=== PATIENT | male | born 1930 | race Caucasian/White ===

== ENCOUNTER 2016-09-14 10:02 | Day surgery (SDC) | payer MEDICARE, OTHER ==
[~2016-09-14] VITALS: Ht 180.3 cm; Wt 95.2 kg
[2016-09-14] MEDS ORDERED: ATOR40TA PO (10:19)
[2016-09-14] MEDS ORDERED: LOSA50TA20 PO (10:19)
[2016-09-14] MEDS ORDERED: NS 1,000 ML IV SCH (10:45)
[2016-09-14] MEDS ORDERED: MORPHINE 2 MG/ML 1ML SYRINGE IV ONE (10:45)
[2016-09-14] MEDS ORDERED: ONDANSETRON 4MG/2ML VIAL (J2405) IV ONE (10:45)
[2016-09-14 11:01] LABS: BASO % 0.3 % (0.0-1.0); EOS % 0.4 % (0.0-3.0); LARGE UNSTAINED CELL # 0.1 K/mm3 (0.0-0.4); LARGE UNSTAINED CELL % 0.7 % (0.0-4.0); LYMPH # 0.7 K/mm3 (1.5-4.5); LYMPH % 5.5 % (24.0-44.0); MEAN CORPUSCULAR HEMOGLOBIN 33.5 pg (27.0-33.0); MEAN CORPUSCULAR HGB CONC 33.5 g/dl (32.0-36.5); MONO # 0.4 K/mm3 (0.0-0.8); MONO % 3.6 % (0.0-5.0); NEUTROPHILS # 9.5 K/mm3 (1.8-7.7); NEUTROPHILS % 89.6 % (36.0-66.0); PLATELET COUNT, AUTOMATED 236 k/mm3 (150-450); RED CELL DISTRIBUTION WIDTH 11.8 % (11.5-14.5); WHITE BLOOD COUNT 10.6 K/mm3 (4.0-10.0)
[2016-09-14] MEDS: MORPHINE 4 MG/ML 1ML SYRINGE IV PRN ×2 (11:03→11:58)
[2016-09-14 11:19] LABS: ANION GAP 7 MEQ/L (8-16); BLOOD UREA NITROGEN 19 MG/DL (7-18); CALCIUM LEVEL 8.9 MG/DL (8.8-10.2); CARBON DIOXIDE LEVEL 26 MEQ/L (21-32); CHLORIDE LEVEL 107 MEQ/L (98-107); CREATININE FOR GFR 0.76 MG/DL (0.70-1.30); GLOMERULAR FILTRATION RATE > 60.0 (>35); GLUCOSE, FASTING 147 MG/DL (83-110); POTASSIUM SERUM 4.1 MEQ/L (3.5-5.1); SODIUM LEVEL 140 MEQ/L (136-145)
--- NOTE | 2016-09-14 11:54 | REP ---
AP PELVIS AND RIGHT HIP: 09/14/2016 CLINICAL HISTORY: Dislocated right hip prosthesis. COMPARISON: Left hip x-ray 01/12/2006. FINDINGS. The AP pelvis and dedicated right hip show posterior hip dislocation of the prosthetic femoral head from the prosthetic acetabulum on the right side. Heavy vascular calcifications are noted. The proximal femoral shaft and its relationship to this stem prosthesis component is normal. There is no visible fracture of the acetabulum or pubic rami. Degenerative changes of the right and left SI joint lower lumbar spine noted. A left total hip arthroplasty noted with normal appearance. IMPRESSION: 1. Posterior dislocation of the prosthetic right femoral head from the acetabulum best seen on that cross-table lateral view. No fracture or other acute finding. 2. Left total hip arthroplasty with normal relationship of the prosthetic components with each other and the [place] bone. Signed by Jasson Anderson MD 09/14/2016 01:46 P
[2016-09-14] MEDS ORDERED: ASPI1TAB PO (13:20)
--- NOTE | 2016-09-14 13:43 | REP ---
CHEST, TWO VIEWS: Two views of the chest are performed and compared to a prior study of 01/03/2006. There is no acute infiltrate. There is mild bibasilar interstitial fibrosis. The heart is normal in size and there is mild calcification and tortuosity of the thoracic aorta. There are degenerative changes at the shoulders and diffusely of the spine. IMPRESSION: No acute infiltrate. Signed by Rocky Turner MD 09/14/2016 02:29 P
--- NOTE | 2016-09-14 15:24 | ER ---
DATE OF CONSULTATION: 09/14/2016 PRIMARY CARE PROVIDER: Dr. Rainer Maddox REASON FOR CONSULTATION: Medical optimization. The patient is an 86-year-old male with past medical history significant for coronary artery disease status post cardiac stents in 1997, hypertension, hyperlipidemia and multiple hip surgeries, presented to the emergency room after his hip gave out on him. He stated he was fixing a water pipe, his right hip gave out on him and he fell to the ground. In the emergency room the patient had a hip x-ray which showed dislocated right hip prosthesis. The patient denies any chest pain at this time. Denies any shortness of breath, nausea or vomiting. No fevers, no chills. The hospitalist was called by the emergency room provider for medical optimization prior to taking the patient back to the operating room (OR) for reduction of his right hip. REVIEW OF SYSTEMS: 12-point review of systems was obtained all of which was negative except for those mentioned above. PAST MEDICAL HISTORY: Significant for coronary artery disease status post cardiac stenting, hypertension, hyperlipidemia, left total hip repair and later left hip revision, right total hip repair. SURGERIES: Significant for cardiac stenting, last of which was 1997, bilateral hip replacement, left hip revision, carpal tunnel bilaterally. MEDICATIONS: Include: - aspirin 81 mg - losartan 50 mg by mouth at bedtime - atorvastatin 40 mg by mouth at bedtime SOCIAL HISTORY: The patient smokes a pipe three times a day and drinks alcohol occasionally. Lives at home with his . FAMILY HISTORY: Noncontributory. ALLERGIES: To medications include CIPROFLOXACIN and COUMADIN. PHYSICAL FINDINGS: Blood pressure 149/76, 96% on room air, pulse is 86, respiratory rate is 18, temperature 96.4. HEENT: Pupils equal, round, reactive to light and accommodation. NECK: Supple. No jugular venous distention (JVD). LUNGS: Clear to auscultation bilaterally. ABDOMEN: Soft, nontender, nondistended. EXTREMITIES: Mild pain on palpation. IMAGING STUDIES: As above. EKG reviewed. ASSESSMENT/PLAN: 1. Right hip dislocation. The patient to be taken to the operating room (OR) for reduction. The patient has moderate risk for surgery given his age and heart disease. However, the patient is optimized at this time. He states he normally is able to walk 20-30 minutes before getting any shortness of breath or needing to sit down. He denies any chest pain at this time. 2. History of coronary artery disease. The patient has not been seen by cardiology. 3. Hypertension. The patient has not taken any blood pressure medication this morning, stating he takes losartan at night. 4. Hyperlipidemia. Continue the patient's medication postoperatively.
--- NOTE | 2016-09-14 15:35 | HPE ---
DATE OF ADMISSION: 09/14/2016 CHIEF COMPLAINT: Right hip dislocation status post total hip arthroplasty approximately 23 years ago. HISTORY: This is an 86-year-old gentleman who has had two hip replacements done on the left side and one on the right which he thinks is about 23 years old, done by Dr. Diaz. He has been doing well with the hip and then today he was bending over to pick something up when he felt his right hip and his legs seemed shortened. He just kind of collapsed to the ground but did not hurt anything when he fell, feels like the hip dislocated just when he was leaning over. He has had no previous instability issues. I was asked to evaluate him for this. They did not feel comfortable sedating him in the emergency room for a closed reduction, so Dr. Ardon recommended that we do this in the operating room. Past medical history notable for previous cardiac stents and previous hip surgeries. He does have hypercholesterolemia and hypertension. ALLERGIES: Include COUMADIN and CIPROFLOXACIN. CURRENT MEDICATIONS: Include: - atorvastatin 40 mg daily - losartan potassium 50 mg at bedtime - aspirin 81 mg at bedtime REVIEW OF SYSTEMS: Negative for neurologic history. Positive for cardiac history and hypertension and hypercholesterolemia. Negative for respiratory history or gastrointestinal (GI) history. Denies urinary disorder or ear, nose, throat (ENT) problems. Endocrine denies. Musculoskeletal as noted above. Denies hematologic condition or psychosocial problems. Denies being an methicillin-resistant Staphylococcus aureus (MRSA) carrier. PHYSICAL EXAMINATION: He is alert, oriented, no acute distress. HEENT: Extraocular muscles intact. Pharynx benign. Regular rate and rhythm to his pulse. Pulmonary: Nonlabored breathing. No obvious wheezing. Abdomen: Soft, nontender, nondistended. Extremities: Right lower extremity demonstrates some shortening, he moves his toes well. Reports intact sensation distally. Does have irritability to range of motion of his right hip. Does have probably some degree of diminished pulses distally but he has good perfusion of the foot. X-rays reviewed of his hip and pelvis and they demonstrate a right total hip arthroplasty that appears to be overall in good position. I do not see any obvious loosening or malposition noted of the components. There may be a little bit of osteolysis in the proximal femur, but the stem does not appear to be loose. The cup appears to be overall in good position and does not appear to be loose, it is in some degree of anteversion. IMPRESSION: 86-year-old with a right total hip arthroplasty dislocation. RECOMMENDATIONS: I have suggested closed reduction, possible open reduction if we cannot get it closed. He and his understand the nature of this and wish to go ahead with it. They understand the risks of persistent instability, fracture, need for further surgery and then the risks of medical problems, risks of anesthesia, etc. Will likely admit him overnight for pain management and physical therapy tomorrow to work on ambulation assist and total hip precautions to try to prevent this from recurring.
[2016-09-14] MEDS ORDERED: PROPOFOL 200 MG/20 ML VIAL As Ordered ONE (15:52)
[2016-09-14] MEDS ORDERED: LIDOCAINE 2% INJ 100 MG/5 ML SDV (FOR ANES.) As Ordered ONE (15:52)
[2016-09-14] MEDS ORDERED: SUCCINYLCHOLINE 100 MG/5 ML SYRINGE (J0330) As Ordered ONE (15:52)
[2016-09-14] MEDS ORDERED: fentaNYL 100 MCG/2 ML INJECTION (J3010) As Ordered ONE (16:21)
[2016-09-14] MEDS ORDERED: ACETAMINOPHEN TAB 650MG DOSE (2X325MG) PO PRN (17:00)
[2016-09-14] MEDS ORDERED: FLEET ENEMA PR PRN (17:00)
[2016-09-14] MEDS ORDERED: NORCO, ANEXSIA 5/325MG TABLET (HYDROcodone/ACETAMINOPHEN) PO PRN (17:00)
[2016-09-14] MEDS ORDERED: fentaNYL 100 MCG/2 ML INJECTION (J3010) IV PRN (17:00)
[2016-09-14] MEDS ORDERED: ONDANSETRON 4MG/2ML VIAL (J2405) IV PRN ×2 (17:00)
[2016-09-14] MEDS ORDERED: MORPHINE 2 MG/ML 1ML SYRINGE IV PRN (17:00)
[2016-09-14] MEDS ORDERED: LR 1,000 ML IV SCH (17:00)
[2016-09-14] MEDS: LR 1,000 ML IV SCH (17:00)
[2016-09-14] MEDS ORDERED: MORPHINE 4 MG/ML 1ML SYRINGE IV PRN (17:00)
[2016-09-14 18:00] VITALS: BP 136/67
[2016-09-14 19:46] LABS: MEAN CORPUSCULAR HEMOGLOBIN 33.6 pg (27.0-33.0); MEAN CORPUSCULAR HGB CONC 33.6 g/dl (32.0-36.5); RED CELL DISTRIBUTION WIDTH 11.7 % (11.5-14.5); WHITE BLOOD COUNT 7.6 K/mm3 (4.0-10.0)
[2016-09-14 19:52] LABS: INR 1.01
[2016-09-14 20:14] LABS: ANION GAP 6 MEQ/L (8-16); BLOOD UREA NITROGEN 16 MG/DL (7-18); CALCIUM LEVEL 8.4 MG/DL (8.8-10.2); CARBON DIOXIDE LEVEL 27 MEQ/L (21-32); CHLORIDE LEVEL 108 MEQ/L (98-107); CREATININE FOR GFR 0.86 MG/DL (0.70-1.30); GLOMERULAR FILTRATION RATE > 60.0 (>35); GLUCOSE, FASTING 151 MG/DL (83-110); POTASSIUM SERUM 3.9 MEQ/L (3.5-5.1); SODIUM LEVEL 141 MEQ/L (136-145)
[2016-09-14] MEDS ORDERED: ENOXAPARIN 30 MG/0.3 ML SYR (J1650) SC SCH (21:00)
[2016-09-14 22:00] VITALS: BP 139/65
--- NOTE | 2016-09-15 05:37 | RO ---
DATE OF PROCEDURE: 09/14/2016 PREOPERATIVE DIAGNOSIS: Right total hip dislocation. POSTOPERATIVE DIAGNOSIS: Right total hip dislocation. PROCEDURE: Closed reduction of right total hip arthroplasty. SURGEON: Shankar Sweet MD ADMISSIONS DIRECTOR: ANESTHESIA: General with mask ventilation. COMPLICATIONS: None. INDICATIONS: This is an 86-year-old gentleman who has had a right total hip arthroplasty over [address] Diaz. He has done well with his hip. There was at one point some discussion of doing a polyethylene exchange on the hip, but the patient decided against that. He was leaning forward picking something up when his right hip popped and dislocated today. X-ray showed a posterior dislocation of the hip and I was asked to evaluate him for this. He denies any other complaints. Preop clearance was obtained. DESCRIPTION OF PROCEDURE: Patient taken to the operating room and placed supine position after heavy sedation was introduced and succinylcholine was given and mask ventilation was provided. Once this was performed, I placed some gentle longitudinal traction with the hip flexed at about 45 degrees and some counterpressure was placed on the iliac wings by an assistant store manager. The hip fairly easily reduced and the leg was out to length, and I then put the hip through range of motion, flexed up to 90 degrees, gentle internal/external rotation demonstrated the hip was stable. Post reduction films were obtained and confirmed that the hip was reduced. There is some slight polyethylene asymmetry. The plan will be to admit overnight for physical therapy and instruction in hip precautions, abduction pillow and partial weightbearing, hopefully home tomorrow.
[2016-09-15] MEDS: LR 1,000 ML IV SCH (05:46)
[2016-09-15 06:00] VITALS: BP 118/61
--- NOTE | 2016-09-15 08:55 | REP ---
Right hip: Single view. History: Closed reduction. Findings: The radiograph appears over exposed and the distal end of the hip prosthesis and the proximal femoral diaphysis are not seen. The prosthetic hip appears reduced on this single AP view. No fracture is evident. Signed by Scott Rouse MD 09/15/2016 01:09 P
--- NOTE | 2016-09-15 12:44 | ECGEPIP ---
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 Prominent voltage AVL - LVH by Sal criteria No prior tracing for comparison Electronically Signed On 09-15-2016 12:43:44 EDT by David Matthews
== END 2016-09-15 13:25 | disposition home or self-care (01) ==
LOC: EDBD 10:02 → M ED 10:41 → M SDC 15:29 → M MS4PR 17:19 → M SDC 09-15 13:25
PROVIDERS: ATTEND Orthopaedic Surgery
DX: T84.021A Dislocation of internal left hip prosthesis, initial encounter (principal); I25.10 Atherosclerotic heart disease of native coronary artery without angina pectoris; N40.0 Benign prostatic hyperplasia without lower urinary tract symptoms; I10 Essential (primary) hypertension; I51.9 Heart disease, unspecified; Z88.1 Allergy status to other antibiotic agents; Z88.8 Allergy status to other drugs, medicaments and biological substances; Z79.899 Other long term (current) drug therapy; Z79.82 Long term (current) use of aspirin; Z95.5 Presence of coronary angioplasty implant and graft; Z96.643 Presence of artificial hip joint, bilateral
CPT/HCPCS: 27266; 36415; 71020; 73502; 80048; 85025; 85027; 85610; 85730; 86850; 86900; 86901; 93005; 97162; 99285; G8978; G8979; G8980; J0330; J1650; J2405; J3010